=== PATIENT | female | born 1985 | race Caucasian/White ===

== ENCOUNTER → 2019-05-01 16:31 | Outpatient (CLI) | payer OTHER | END | disposition home or self-care (01) | LOC: RAD 16:31 | DX: M54.2 Cervicalgia (principal); M54.6 Pain in thoracic spine ==

== ENCOUNTER 2023-10-07 16:08 | Outpatient (CLI) | payer OTHER | END 2023-10-07 16:16 | disposition home or self-care (01) | LOC: RAD 16:08 | PROVIDERS: ATTEND Physical Medicine & Rehabilitation | DX: M54.2 Cervicalgia (principal); M54.59 Other low back pain; M25.561 Pain in right knee; M25.562 Pain in left knee ==